=== PATIENT | female | born 1990 | race Caucasian/White ===

== ENCOUNTER 2018-08-08 07:39 | Day surgery (SDC) | payer OTHER ==
[2018-08-08] MEDS ORDERED: LR 1,000 ML IV ×2 (08:00→10:00)
[2018-08-08 08:33] LABS: HEMATOCRIT 40.4 % (36.0-47.0); HEMOGLOBIN 13.3 g/dl (12.0-15.5)
[2018-08-08 08:48] LABS: CONTROL LINE HCG INT CTR LINE PRESENT; HCG, SERUM QUALITATIVE NEGATIVE (NEGATIVE)
[2018-08-08] MEDS ORDERED: LIDOCAINE 2% INJ 100 MG/5 ML SDV (FOR ANES.) As Ordered (09:07)
[2018-08-08] MEDS ORDERED: KETOROLAC 60 MG/2 ML VIAL (J1885) As Ordered (09:07)
[2018-08-08] MEDS ORDERED: METOCLOPRAMIDE INJ 10MG/2ML VIAL (J2765) As Ordered (09:07)
[2018-08-08] MEDS ORDERED: MIDAZOLAM INJ 2 MG/2 ML VIAL (J2250) As Ordered (09:07)
[2018-08-08] MEDS ORDERED: dexameTHASONE 4 MG/ML 1ML VIAL (J1100) As Ordered (09:07)
[2018-08-08] MEDS ORDERED: ONDANSETRON 4MG/2ML VIAL (J2405) As Ordered (09:07)
[2018-08-08] MEDS ORDERED: fentaNYL 100 MCG/2 ML INJECTION (J3010) As Ordered (09:07)
[2018-08-08] MEDS ORDERED: PROPOFOL 200 MG/20 ML VIAL As Ordered (09:07)
[2018-08-08] MEDS ORDERED: IBUPROFEN 800 MG TAB PO (10:00)
[2018-08-08] MEDS ORDERED: fentaNYL 100 MCG/2 ML INJECTION (J3010) IV (10:00)
[2018-08-08] MEDS ORDERED: PERCOCET 5MG/325MG TAB PO (10:00)
[2018-08-08] MEDS ORDERED: ONDANSETRON 4MG/2ML VIAL (J2405) IV (10:00)
== END 2018-08-08 11:22 | disposition home or self-care (01) ==
LOC: M SDC 07:39
DX: T83.39XA Other mechanical complication of intrauterine contraceptive device, initial encounter (principal)
CPT/HCPCS: 58562